=== PATIENT | female | born 1965 | race African-American/Black ===

== ENCOUNTER 2016-06-25 22:14 | Inpatient (IN) | payer OTHER ==
--- NOTE | ~2016-06-25 | CR72 ---
[facility] A Service of [facility] RADIOLOGY TEXT RESULTS PATIENT: JASS WHITTINGTON LOCATION: [facility] 577-01 : [birth year] UNIT #: [id number] AGE: [address]: Jason Armendariz MD SEX: F ORDER DR: [id number] [facility] [address] [facility] [place], [place] [address] [id number] I MR#: [id number] Acc #: [id number] NAME: JASS WHITTINGTON. : 1965 SEX: F STUDY DATE/TIME: 06/25/2016 21:50 UNIT: [facility] ROOM: [facility] STUDY DESCRIPTION: CR Chest Single View Portable Attending Physician: Kaila Padilla M.D. Ordering Physician: Abdias Irvin M.D. Primary Care Physician: Primary Care Physician No MEDICAL IMAGING REPORT This report is preliminary unless electronic signature is present EXAM Portable chest x-ray 06/25/2016 HISTORY Cough and short of air, weakness, congestion began today. FINDINGS AP radiograph of the chest is presented. No prior studies available for comparison at time of this dictation. Tracheostomy tube appears in good position. No acute bony abnormality. Mild cardiac enlargement. The lung volumes are low and there is some resulting central bronchovascular crowding. Pulmonary vasculature is more prominent than anticipated for the low lung volumes and there are increased interstitial densities in the hilar/perihilar regions with some patchy airspace densities in the bilateral upper and lower lung zones. The appearance is concerning for underlying vascular congestion with mild pulmonary edema having both interstitial and airspace components. No dense airspace disease. No pneumothorax. There may be a trace right pleural effusion. No sizable pleural effusion is suggested. Dictated by... Juventino Alonzo M.D. THIS IS AN ELECTRONICALLY VERIFIED REPORT Juventino Alonzo M.D. at 06/26/2016 8:05 PM ELVIA/elza TD: 06/26/2016 06:30 JOB #: [id number] [facility] A Service of [facility] RADIOLOGY TEXT RESULTS PATIENT: JASS WHITTINGTON LOCATION: [facility] 577-01 : [birth year] UNIT #: [id number] AGE: [address]: Jason Armendariz MD SEX: F ORDER DR: MEDICAL IMAGING REPORT Page 1 of 1 COPY
--- NOTE | ~2016-06-25 | DS ---
Unit #: [id number] #: [id number] Patient: JASS WHITTINGTON 115757 [address] [address] [id number] I MR#: [id number] NAME: JASS WHITTINGTON ROOM: 578 Age: 51 Sex: F Admission Date: 06/26/2016 : 1965 Discharge Date: Attending Physician: Nelson Siu M.D. Primary Care Physician: No Primary Care Physician DISCHARGE SUMMARY ADDENDUM This is an addendum to an addendum done by , which was an addendum to a discharge summary done by Dr. Jason Armendariz on 07/05/2016. The patient's initial discharge was anticipated on 07/07/2016. However, rehab bed was unavailable. The patient's hospital course has remained clinically uneventful and the patient does well on her home medications and home oxygen. It is anticipated that a bed will be available later today or tomorrow. The patient will be discharged when said bed is available. Dictated by... Efrain Leigh/bon TD: 07/09/2016 09:12 JOB #: [id number] DISCHARGE SUMMARY Page 1 of 1 X Nelson Siu MD X DISCHARGE SUMMARY
--- NOTE | ~2016-06-25 | CR72 ---
[facility] A Service of [facility] RADIOLOGY TEXT RESULTS PATIENT: JASS WHITTINGTON LOCATION: [place] [address]- : [birth year] UNIT #: [id number] AGE: [address]: Nelson Siu MD SEX: F ORDER DR: [id number] [facility] [address] [facility]. [place], [place] [address] [id number] I MR#: [id number] Acc #: [id number] NAME: JASS WHITTINGTON : 1965 SEX: F STUDY DATE/TIME: 07/10/2016 11:21 UNIT: [facility] ROOM: [facility] STUDY DESCRIPTION: CR Chest Single View Portable Attending Physician: Nelson Siu M.D. Ordering Physician: Ed Doctor [id number] [facility] Primary Care Physician: Primary Care Physician No MEDICAL IMAGING REPORT This report is preliminary unless electronic signature is present EXAM Single view chest INDICATIONS Shortness of air and respiratory failure. Cough. FINDINGS Single portable AP view of the chest compared to 06/25/2016. Tracheostomy tube remains in place. Heart is enlarged. Lung volumes remain low. There is improving bilateral interstitial opacities. No pneumothorax. IMPRESSION 1. Persistent low lung volumes, however there is improving interstitial opacities. 2. Cardiomegaly. Dictated by... Alvin Prescott M.D. THIS IS AN ELECTRONICALLY VERIFIED REPORT Alvin Prescott M.D. at 07/10/2016 3:14 PM ALEXSANDER/dale TD: 07/10/2016 14:25 JOB #: [id number] MEDICAL IMAGING REPORT Page 1 of 1 COPY
--- NOTE | ~2016-06-25 | DS ---
Unit #: [id number] #: [id number] Patient: JASS WHITTINGTON [id number] [address] [address] [id number] I MR#: [id number] NAME: JASS WHITTINGTON. ROOM: 578 Age: 51 Sex: F Admission Date: 06/26/2016 : 1965 Discharge Date: Attending Physician: Nelson Siu M.D. Primary Care Physician: No Primary Care Physician DISCHARGE SUMMARY ADDENDUM Addendum to the discharge summary done by Dr. Jason Armendariz on 07/05/16. No further interventions were initiated after the above dictation. Waiting for placement. At this time, said placement has been found and the patient is being discharged now. DISCHARGE MEDICATIONS 1. Combivent q.4 hours as needed and t.i.d. 2. Magnesium oxide 400 mg p.o. b.i.d. 3. Flonase two sprays each nostril daily. 4. Bactroban ointment topically daily. 5. Zyrtec 10 mg p.o. daily. 6. Wal-Dryl 25 mg p.o. b.i.d. 7. Promethazine DM syrup as needed q.4 hours for cough. 8. Lopressor 25 mg p.o. b.i.d. 9. Laxative of choice p.r.n. 10. Lasix 40 mg p.o. b.i.d. 11. Lipitor 40 mg daily. 12. Cozaar 50 mg p.o. q. h.s. 13. Lantus 30 units subcu at bedtime. 14. Ranitidine 150 mg p.o. b.i.d. 15. Zyloprim 100 mg p.o. daily. 16. Singulair 10 mg p.o. daily. 17. Aspirin 81 mg daily. 18. Percocet 5/325, one p.o. q.6 hours p.r.n. pain. 19. Spironolactone 50 mg daily. 20. Prilosec 20 mg p.o. b.i.d. 21. Nitrostat 0.4 mg sublingual p.r.n. chest pain. The patient should followup with Dr. Sanz in four weeks. Dictated by... Efrain Leigh/ninfa TD: 07/08/2016 13:06 JOB #: [id number] Unit #: [id number] #: [id number] Patient: JASS WHITTINGTON DISCHARGE SUMMARY Page 1 of 1 X Nelson Siu MD X DISCHARGE SUMMARY
--- NOTE | ~2016-06-25 | DS ---
Unit #: [id number] #: [id number] Patient: JASS WHITTINGTON [id number] [address] [place], [place] [address] [id number] I MR#: [id number] NAME: JASS WHITTINGTON. ROOM: 578 Age: 51 Sex: F Admission Date: 06/26/2016 : 1965 Discharge Date: 07/05/2016 Attending Physician: Nelson Siu M.D. DISCHARGE SUMMARY DATE OF DISCHARGE 07/05/2016 pending rehab placement. HISTORY OF PRESENT ILLNESS/HOSPITAL COURSE The patient is a very pleasant 51-year-old female with underlying history of hypertension, diabetes, obstructive sleep apnea with tracheostomy in place, severe morbid obesity, who was admitted secondary to shortness of breath, toxic metabolic encephalopathy. She has had fairly prolonged hospital stays in the past off and on. She was placed both at [facility] and [facility] to where she eventually went through rehab and was discharged home. She was at home. She began developing acute weight gain as well as increased difficulty of breathing and therefore presented to the hospital for further evaluation. Through hospital course, she was noted to be in acute systolic heart failure. We placed consultation to cardiology Services as well as Dr. Hudson of pulmonary services. In regard to her overall cardiac status, she was placed on IV diuresis as well as dobutamine in the initial part of her hospital stay. She underwent a 2D echocardiogram, which did show a severely reduced ejection fraction of 15% to 20%. She also was noted to have severe valvular heart disease with moderate to severe tricuspid regurgitation present. She has diuresed nearly 100 pounds of fluid off at the present time. Her current weight stands at 420 pounds. She states that she feels much better. She is now much more active. She is essentially bedridden, but she has been working with physical therapy. She has been able to sit on the side of the bed and actually walk a few steps. Pulmonary services did change her trach, which she does have in place. At this point in time, she has achieved a maximum diuretic effect with IV diuresis and that now has been transitioned to p.o. diuresis. Her medications will be reviewed by cardiology services and pulmonary services prior to discharge. The plans will be initiated for her to be transitioned to a rehab facility. CURRENT CLINICAL DIAGNOSES As of 07/05/2016: 1. Acute on chronic systolic heart failure with an ejection fraction noted to be 15% to 20%. Unit #: [id number] #: [id number] Patient: JASS WHITTINGTON 2. Severe valvular heart disease with noted moderate to severe tricuspid regurgitation. 3. Volume overload. 4. Severe morbid obesity with baseline weight approximately 420 pounds. 5. Multifactorial dyspnea, likely secondary to restrictive lung disease and heart failure. 6. Hypertension. 7. Hyperlipidemia. 8. Type 2 diabetes. 9. Chronic respiratory failure. 10. Obstructive sleep apnea with tracheostomy in place. Final discharge medications and/or disposition will be planned when the patient's rehab bed is available and services have reviewed at that particular time. Dictated by... Jason Armendariz M.D. ELISA/leatha TD: 07/06/2016 03:55 JOB #: [id number] DISCHARGE SUMMARY Page 1 of 1 X Jason Armendariz MD X DISCHARGE SUMMARY
--- NOTE | ~2016-06-25 | A ---
[facility] Nutrition Therapy DATE: 07/06/16 Patient: JASS WHITTINGTON Physician: HUNG Address: [address] Room/Bed: [address] [place] [address], Zip: [place] [address] Admit Date: 06/26/16 Date of : [birth year] Height: 5 9 Weight: 226 102.9 NUTRITIONAL ASSESSMENT: REASON: LOS ASSESSMENT PT IS 51 Y.O. FEMALE ADMITTED FOR CHF, ACUTE ON CHRONIC RESP FAILURE PMH: MARLEY S/P TRACHEOSTOMY, CHRONIC RESP FAILURE, HTN, DM, HLD, COPD, GOUT Anthropometrics: 5'9", WT: 421# (191 KG), BMI: 62.2, 290%IBW Labs: BUN: 53, CREAT: 1.6, ALB: 3.0 (06/30/16), A1c: 6.1, GFR: 42.2 Meds: PEPCID, FUROSEMIDE, LIPITOR, PROTONIX, NOVOLOG, LAXATIVE, NACL I/O & Bowel function: 1680/1752. 2 BMs NOTED Skin Integrity: BUTTOCKS OPEN AREA NOTED; PRESSURE ULCER (L) GREAT TOE Estimated Nutrition Needs: N/A Assessment: CHART REVIEWED AND EVENTS NOTED. PT SEEN FOR LOS (10 DAYS). PT REPORTS GOOD PO INTAKE AND APPETITE, NOTING NO C/O N/V/D. PT DENIES ANY RECENT WEIGHT LOSS. THIS RD PROVIDED WRITTEN AND VERBAL WEIGHT CONTROL + HH DIET EDUCATION. PT VERBALIZED UNDERSTANDING OF THE TOPIC. PT REPORTED NO DIET QUESTIONS AT THIS TIME. PER RN AND CHART, PLANS IN PLACE FOR PT TO TRANSFER TO [facility] WHEN BED AVAILABLE. RD TO REMAIN AVAILABLE. Dx: EXCESSIVE CALORIC INTAKE R/T LIFESTYLE AEB BMI OF 62.2. Intervention: 1. CC+HH + 1800 ML FLUID RESTRICTION DIET 2. DIET EDUCATION PROVIDED Monitoring, Evaluation and Goals: 1. WEIGHTS; PROMOTE GRADUAL WEIGHT LOSS TOWARDS HEALTHY BMI (19.0-25.0) OR +/-10%IBW 2. LABS; WNL MONITOR: -PO INTAKE -WEIGHTS -EDUCATION NEEDS Recommendations: 1. CONTINUE TO ENCOURAGE COMPLIANCE OF CURRENT DIET ORDER-CC+HH+ 1800 ML FLUID RESTRICTION [facility] Nutrition Therapy DATE: 07/06/16 Patient: JASS WHITTINGTON Physician: HUNG Address: [facility] [address] Room/Bed: [address] [place] [address], Zip: [place] [address] Admit Date: 06/26/16 Date of : [birth year] Height: 5 9 Weight: [address] IF FURTHER DIET EDUCATION REQUESTED RD WILL F/U PER PROTOCOL PT IS MILDLY COMPROMISED Respectfully, NEDRA SOLITARIO MS, RD, LD Food and Nutritional Services [facility] cc: client file
--- NOTE | ~2016-06-25 | EKG ---
PATIENT: JASS WHITTINGTON UNIT #: [id number] Ventricular Rate: 84 BPM Atrial Rate: 84 BPM P-R Interval: 134 ms QRS Duration: 102 ms Q-T Interval: 406 ms QTC Calculation(Bezet): 479 ms P Watrous: 68 degrees Calculated R Watrous: -21 degrees Calculated T Watrous: 83 degrees Diagnosis Line: Sinus rhythm Diagnosis Line: Poor R wave progression questionable lead position Diagnosis Line: or body habitus Diagnosis Line: T wave abnormality, consider anterolateral Diagnosis Line: ischemia Abnormal ECG Diagnosis Line: No previous ECGs available Diagnosis Line: Confirmed by CARLITO GOFF MD ([id number]) on 06/29/2016 Diagnosis Line: 10:42:45 PM INTERPRETING MD: SHELL HANCOCK
--- NOTE | ~2016-06-25 | BMI ---
[facility] Nutrition Therapy DATE: 06/26/16 Patient: JASS WHITTINGTON Physician: HUNG Address: [address] Room/Bed: [address] [place] [address], Zip: [place] [address] Admit Date: 06/26/16 Date of : [birth year] Height: Weight: 431 195.9 HIGH BMI NOTE: DX: 51 Y.O. FEMALE ADMITTED FOR CHF EXAC, ACUTE ON CHRONIC RESP FAILURE ANTHROPOMETRICS: 5'8", WT: 431# (196 KG), BMI: 65.5 DIET: CC+HH INTERVENTION: 1. CC+HH DIET RECOMMENDATIONS: 1. CONTINUE CURRENT DIET ORDER ABOVE TO PROMOTE GRADUAL WEIGHT LOSS TOWARDS HEALTHY BMI (19.0-25.0) OR +/-10%IBW RD WILL F/U PER PROTOCOL Respectfully, NEDRA SOLITARIO MS, RD, LD Food and Nutritional Services [facility] cc: client file
--- NOTE | ~2016-06-25 | CO ---
Unit #: [id number] #: [id number] Patient: JASS WHITTINGTON [id number] [address] [place], [place] [address] [id number] I MR#: [id number] NAME: JASS WHITTINGTON ROOM: 577 Age: 51 Sex: F Admission Date: 06/26/2016 : 1965 Attending Physician: Jason Armendariz M.D. Consultation Date: 06/26/2016 CONSULTATION REPORT REASON FOR CONSULTATION Congestive heart failure. HISTORY OF PRESENT ILLNESS This is a 51-year-old female, known to [facility] with a past medical history of reported dilated cardiomyopathy and chronic congestive heart failure. However, the patient had a 2D echocardiogram on 10/23/2014 at [facility], which was a technically difficult study. Ejection fraction was calculated at 50% to 55%. There was some impaired left ventricular relaxation and mild tricuspid regurgitation. Additional past medical history includes morbid obesity, hypertension, diabetes mellitus type 2, COPD, obstructive sleep apnea, gout, hyperlipidemia, and chronic respiratory failure with history of tracheostomy. The patient presented to the emergency department with complaints of shortness of breath for the last couple of days. She has had some PND and orthopnea. Has been sleeping with two pillows and wakes up with difficulty breathing. She admits to some chills, but no fever. She complains of some congestion in the chest. She has also had some swallowing issues over the past 1 to 2 days. There are no reports of chest pain. She denies any dizziness, palpitations, or syncope. She has had some constipation, but no melena. She admits to lower extremity edema. She is on a diuretic at home, but has not been taking the dose for the last couple of days due to significant shortness of breath and difficulty getting out of bed to use the restroom. She states that she has been compliant with all the other medications. She denies any previous ischemic workup. We will need to obtain further records and review. She was admitted to the hospital for acute on chronic respiratory failure and possible congestive heart failure. Cardiology was consulted for congestive heart failure. On exam, there is significant edema. The breath sounds are decreased. BNP was elevated at 831. Creatinine is 1.0 with a BUN of 57. Chest x-ray reveals mild cardiovascular enlargement with low lung volumes. There is vascular congestion and mild pulmonary edema noted. EKG reveals sinus rhythm with poor R-wave progression and a left axis deviation, which could be all weight related. PAST MEDICAL HISTORY 1. A 2D echocardiogram on 10/23/2014 as reviewed above with ejection fraction of 50% to 55%. Impaired left ventricular relaxation. Trace to Unit #: [id number] #: [id number] Patient: JASS WHITTINGTON mild mitral regurgitation. Mild tricuspid regurgitation. Right ventricular systolic pressure 30 to 35 mmHg. Trace pulmonic regurgitation. No pericardial effusion. 2. History of reported dilated cardiomyopathy and chronic congestive heart failure. 3. Morbid obesity. 4. Hypertension. 5. Hyperlipidemia. 6. Diabetes mellitus, type 2. 7. COPD. 8. Obstructive sleep apnea. 9. Chronic respiratory failure with tracheostomy. 10. Gout. 11. Nonsmoker. PAST SURGICAL HISTORY 1. Tonsillectomy. 2. Tracheostomy. HOME MEDICATIONS Amlodipine 5 mg p.o. daily; metolazone 2.5 mg p.o. daily; allopurinol 100 mg p.o. daily; Lantus 30 units subcu bedtime; nitroglycerin 0.4 mg sublingual daily; Combivent 3 mL inhalation every 4 hours; Flonase 50 mcg nasal daily; Promethazine DM one teaspoon p.o. every 4 hours p.r.n. for cough; Prilosec 20 mg p.o. b.i.d.; diphenhydramine 25 mg p.o. b.i.d.; Lasix 40 mg p.o. b.i.d.; potassium chloride 20 mEq p.o. daily; Zyrtec 10 mg p.o. daily; ranitidine 150 mg p.o. b.i.d.; Singulair 10 mg p.o. daily; aspirin 81 mg p.o. daily; Lipitor 40 mg p.o. daily. ALLERGIES No known drug allergies. SOCIAL HISTORY The patient lives in a private residence with her mother. She sleeps in a hospital bed. She uses a walker to ambulate. She is a lifetime nonsmoker. There are no reports of alcohol or illicit drug use. FAMILY HISTORY Noncontributory. REVIEW OF SYSTEMS 10-point review of systems negative except for details noted above in HPI. PHYSICAL EXAMINATION VITAL SIGNS: Temperature 98.1, pulse 94, blood pressure 126/79. CONSTITUTIONAL: This is a 51-year-old female, who is morbidly obese. SKIN: Warm and dry. NECK: Supple. No jugular vein distention. No hepatojugular reflux. Normal carotid upstrokes. No carotid bruits auscultated. HEART: S1 and S2. Regular rate and rhythm. No murmurs, rubs, or gallops. LUNGS: Bilateral breath sounds have faint rales in the bases. Respirations are even and nonlabored. No rhonchi or wheezes. ABDOMEN: Obese, soft, nontender, and nondistended. Positive bowel sounds auscultated x4 quadrants. No ascites noted. Unit #: [id number] #: [id number] Patient: JASS WHITTINGTON EXTREMITIES: Bilateral lower extremities have 2+ pitting edema. DP and PT pulses 1+. Capillary refill less than 20 seconds. DIAGNOSTIC STUDIES LABORATORY RESULTS: White blood cell count 10.3, hemoglobin 14.5, hematocrit 46.2, platelets 220. Sodium 137, potassium 4.3, chloride 93, CO2 of 34, BUN 57, creatinine 1.0, glucose 100, albumin 3.4, total bilirubin 1.0, direct bilirubin 0.3, indirect bilirubin 0.7, AST 26, ALT 18, alkaline phos 105. BNP 831. INR 1.2. IMAGING STUDIES: Chest x-ray reveals trach in good position. Mild cardiovascular enlargement. Low lung volumes. Vascular congestion with mild pulmonary edema. Questionable trace pleural effusion. CARDIOVASCULAR STUDIES: EKG reveals sinus rhythm with left axis deviation. Poor R-wave progression. QTc: 7 msec. IMPRESSION 1. Dilated cardiomyopathy questionably secondary to hypotension. 2. Morbid obesity. 3. Obstructive sleep apnea. 4. Chronic respiratory failure with tracheostomy. 5. Hyperlipidemia. 6. Diabetes mellitus type 2, insulin dependent. PLAN 1. The patient presented to the hospital with complaints of shortness of breath. She was admitted to the hospital for acute on chronic respiratory failure and possible congestive heart failure. 2. Cardiology was consulted for further evaluation of congestive heart failure. 3. The patient will be placed on spironolactone. We will continue IV diuretics as dosed. 4. She has been advised to follow fluid restriction and low-sodium diet. 5. There are no complaints of chest pain. We will trend cardiac enzymes and EKG. 6. Fasting lipid profile and TSH will be obtained. 7. The patient has worsening swelling in the left upper extremity and a venous Doppler will be ordered to rule out deep vein thrombosis. 8. The patient reports issues with swallowing and Speech Therapy will be consulted for bedside swallow evaluation. 9. The patient will be placed on carvedilol due to congestive heart failure. Norvasc will be discontinued due to lower extremity edema. The patient will also be started on an ARB for afterload reduction. 10. A 2D echocardiogram has been ordered to reassess LV function and valves. 11. The patient has been advised to lose weight by means of exercise and decrease caloric intake. Dictated by... Enid Lutz APRN for Efrain Carbajal/leatha TD: 06/27/2016 18:48 JOB #: [id number] Unit #: [id number] #: [id number] Patient: NELSYJASS E CONSULTATION REPORT Page 1 of 1 X X CONSULTATION REPORT
--- NOTE | ~2016-06-25 | HP ---
Unit #: [id number] #: [id number] Patient: JASS WHITTINGTON [id number] [address] [place], [place] [address] [id number] MR#: [id number] NAME: JASS WHITTINGTON. ROOM: 577 Age: 51 Sex: F Admission Date: 06/26/2016 : 1965 Attending Physician: Kaila Padilla M.D. Primary Care Physician: No Primary Care Physician HISTORY AND PHYSICAL CHIEF COMPLAINT Acute on chronic respiratory failure, congestive heart failure. HISTORY This pleasant 51-year-old female with hypertension, AODM, obstructive sleep apnea with trach in place, morbid obesity, is admitted for shortness of breath. Patient states that she was well until two days prior to admission when she developed increasing shortness of breath, mild wheezing, and increasing pedal edema. Notes orthopnea with the above. Denies any pain. She presented to this emergency department late last evening with acute on chronic respiratory failure. BNP and chest x-ray are suggestive of congestive heart failure. She did have initial bronchospasm on exam. She was treated with bronchodilators, 125 mg of Solu-Medrol and 40 IV of Lasix. She currently is breathing easier. I was able to reduce the amount of oxygen that she is receiving via her trach mask substantially in the ER. The patient has never been hospitalized at this facility, and normally goes to [facility]. I will obtain records. PAST MEDICAL HISTORY 1. Hypertension. 2. AODM. 3. Hyperlipidemia. 4. GERD. 5. Gout. 6. Obstructive sleep apnea, on 2 L of oxygen. 7. Morbid obesity. 8. Tracheostomy for obstructive sleep apnea. 9. Tonsillectomy. ALLERGIES No known drug allergies. HOME MEDICATIONS 1. Norvasc 5 mg daily. 2. Zaroxolyn 2.5 mg, two tablets daily. 3. Allopurinol 100 mg daily. 4. Lantus 30 units subcu q. h.s. 5. Nitroglycerin p.r.n. chest pain. 6. Duo-Nebs. 7. Flonase nasal spray. 8. Phenergan DM q.4 hours as needed. 9. Albuterol q.i.d. p.r.n. Unit #: [id number] #: [id number] Patient: JASS WHITTINGTON 10. Omeprazole 20 mg daily. 11. Benadryl 25 mg b.i.d. 12. Lasix 40 mg p.o. b.i.d. 13. Potassium 20 mEq daily. 14. Zyrtec 10 mg daily. 15. Zantac 150 mg b.i.d. 16. Singulair 10 mg daily. 17. Aspirin 81 mg daily. 18. Lipitor 40 mg daily. 19. Oxygen - the patient states that generally she just needs 2 L but 4 L is noted on her sheet. FAMILY HISTORY Positive for CAD. SOCIAL HISTORY The patient lives with her mother and sister. She is a lifelong nonsmoker, does not drink alcohol. REVIEW OF SYSTEMS Somewhat difficult to obtain as patient has tracheostomy which was not occluded. PHYSICAL EXAMINATION GENERAL APPEARANCE: Pleasant, morbidly obese 51-year-old female currently in no acute distress. VITAL SIGNS: Temperature 99, pulse 94, respirations 26, blood pressure 150/103. O2 saturation was read initially as 92% on 2 L of oxygen. Her current O2 saturation is actually 98% on 6 L of oxygen via trach mask currently. HEENT: Eyes PERRLA. Extraocular muscles are intact. Pharynx is benign. NECK: Supple without adenopathy or thyromegaly. CHEST: Actually fairly clear at present. CARDIAC: Normal S1 and S2 without S3, S4 or murmur. ABDOMEN: Bowel sounds are present. No hepatosplenomegaly, tenderness or masses. Abdomen is obese. There are some open areas in the groin region. EXTREMITIES: Notable for chronic venous stasis dermatitis, pedal edema. There is a superficial wound noted over her left great toe but, otherwise, no ulcers on the feet. NEUROLOGIC EXAM: The patient is awake, alert, oriented. Cranial nerves are intact. Equal strength throughout but she is weak on exam. DIAGNOSTIC STUDIES LABORATORY: Admission labs - hematocrit is 46.2, normal white count and platelet count. Cardiac markers are negative. Coags are normal. SMA-12 - BUN is 57, chloride 93, CO2 34, albumin is 3.4, alkaline phos. 105, BNP is 831. ABG - pH 7.35, pCO2 65, pO2 60. O2 saturation is 90% on 10 L oxygen per trach mask. Again, I was able to decrease this considerably in the emergency department. She is now on 6 L, and her current O2 saturation is about 96%. IMAGING: Chest x-ray consistent with congestive heart failure. Unit #: [id number] #: [id number] Patient: JASS WHITTINGTON BNP is 800. CARDIOVASCULAR: EKG - normal sinus rhythm, rate 84. Poor R wave progression. No old EKG for comparison. Patient's last EKG was 2004. ASSESSMENT 1. Acute on chronic hypercapnic/hypoxic respiratory failure: Although patient had wheezes initially on exam, her examination at this time is fairly normal. She does have evidence, however, of congestive heart failure, both by chest x-ray clinically and by BNP. 2. History of congestive heart failure: Details are unknown. Patient presents with decompensated congestive heart failure. 3. Obstructive sleep apnea with trach in place. 4. Possible chronic obstructive pulmonary disease. 5. Morbid obesity. 6. AODM. 7. Hypertension. 8. Hyperlipidemia. 9. Gastroesophageal reflux disease. 10. Gout. 11. Superficial left great toe wound. PLANS 1. IV Lasix, continue Zaroxolyn, obtain I's and O's and daily weights. Will obtain echo, repeat cardiac enzymes. 2. Request old records from [facility]. 3. DVT prophylaxis and check Dopplers of the legs. 4. Patient received one dose of Solu-Medrol which I will not continue. 5. Wound nurse to see. 6. Further workup and consultants depending on above. Dictated by Kaila Padilla M.D. AML/df TD: 06/26/2016 06:06 JOB #: [id number] CC: Lexa Houston M.D. HISTORY AND PHYSICAL Page 1 of 1 X Kaila Padilla MD HISTORY AND PHYSICAL
--- NOTE | ~2016-06-25 | CO ---
Unit #: [id number] #: [id number] Patient: JASS WHITTINGTON [id number] [address] [address] [id number] MR#: [id number] NAME: JASS WHITTINGTON ROOM: 57 Age: 51 Sex: F Admission Date: 06/26/2016 : 1965 Attending Physician: Jason Armendariz M.D. Primary Care Physician: Primary Care Physician No CONSULTATION REPORT REASON FOR CONSULTATION Respiratory failure. HISTORY OF PRESENT ILLNESS This 51-year-old female with past medical history of morbid obesity, obstructive sleep apnea, status post tracheostomy, hypertension, diabetes mellitus, who presents with complaint of shortness of breath and increasing sputum production. I am seeing the patient at the bedside. She appears to be in volume overload and is morbidly obese. She says that her breathing is better. Denies any chest pain. PAST MEDICAL HISTORY 1. Hypertension. 2. Dyslipidemia. 3. Gout. 4. Obstructive sleep apnea. 5. Status post trach. 6. Morbid obesity. HOME MEDICATIONS 1. Norvasc. 2. Zaroxolyn. 3. Allopurinol. 4. Lantus. 5. Nitroglycerin. 6. DuoNeb. 7. Flonase. 8. Phenergan. 9. Albuterol. 10. Omeprazole. 11. Benadryl. 12. Lasix. 13. Potassium. 14. Singulair. 15. Lipitor. 16. Oxygen. ALLERGIES No known drug allergies. SOCIAL HISTORY Nonsmoker, no alcohol, no drug abuse. Unit #: [id number] #: [id number] Patient: JASS WHITTINGTON FAMILY HISTORY Positive for coronary artery disease. PHYSICAL EXAMINATION VITAL SIGNS: Temperature 98, pulse 67, respirations 12, blood pressure 130/70. NEUROLOGIC: Awake, alert, oriented. No neurologic deficits. HEENT: PERRLA. EOMI. NECK: Supple, no JVD. LUNGS: Bilateral air entry, bilateral mild rhonchi. ABDOMEN: Nontender, soft. Positive bowel sounds. EXTREMITIES: Positive edema. DIAGNOSTIC STUDIES LABORATORY: Reviewed. IMAGING: Reviewed. ASSESSMENT AND PLAN 1. [id number] hypercapnic, hypoxic respiratory failure. 2. Acute exacerbation of congestive heart failure. 3. Obstructive sleep apnea. 4. Possible chronic obstructive pulmonary disease. 5. Morbid obesity. 6. Hypertension. 7. Dyslipidemia. PLAN 1. Continue trach care. 2. Continue oxygen. 3. Continue bronchodilator. 4. GI and DVT prophylaxis. 5. Order noncontrast CT of the chest. 6. Procalcitonin level. 7. I will consider antibiotics. 8. Patient will be closely monitored. 9. Please see orders for detailed plan. Thank you very much for this consultation. Dictated by... Efrain Curtis/laure TD: 06/26/2016 22:05 JOB #: [id number] Unit #: [id number] #: [id number] Patient: JASS WHITTINGTON CONSULTATION REPORT Page 1 of 1 X Yady Hudson MD CONSULTATION REPORT
--- NOTE | ~2016-06-25 | US140 ---
[facility] A Service of [facility] RADIOLOGY TEXT RESULTS PATIENT: JASS WHITTINGTON LOCATION: [facility] [place] [facility] 5710-03 : [birth year] UNIT #: [id number] AGE: [address]: Jason Armendariz MD SEX: F ORDER DR: [id number] [facility] [address]. [place], [place] [address] [id number] I MR#: [id number] Acc #: [id number] NAME: JASS WHITTINGTON : 1965 SEX: F STUDY DATE/TIME: 06/26/2016 21:19 UNIT: [facility] [place] [facility] ROOM: [facility] STUDY DESCRIPTION: US UE Veins Unilat or Ltd Stdy Attending Physician: Jason Armendariz M.D. Ordering Physician: Kaila Padilla M.D. Primary Care Physician: No Primary Care Physician MEDICAL IMAGING REPORT This report is preliminary unless electronic signature is present EXAM Upper extremity ultrasound for DVT on the left, 06/26/2016. INDICATION Left upper extremity swelling 2 days. History of diabetes and hypertension. TECHNIQUE Winter-scale, color Doppler, and spectral analysis of the left upper extremity was performed. COMPARISON STUDIES No comparison studies. FINDINGS The left internal jugular vein was not visualized secondary to lack of an adequate sonographic window. The remainder of the left upper extremity demonstrates no evidence of DVT. IMPRESSION No DVT identified in the left upper extremity. Left internal jugular vein not assessed secondary to lack of an adequate sonographic window. Dictated by... Alvarez Valladares M.D. THIS IS AN ELECTRONICALLY VERIFIED REPORT Alvarez Valladares M.D. at 06/27/2016 10:15 PM KIKI/kurt TD: 06/27/2016 11:59 [facility] A Service [facility] RADIOLOGY TEXT RESULTS PATIENT: JASS WHITTINGTON LOCATION: [facility] [place] [facility] 5710-03 : [birth year] UNIT #: [id number] AGE: [address]: Jason Armendariz MD SEX: F ORDER DR: JOB #: [id number] MEDICAL IMAGING REPORT Page 1 of 1 COPY
[2016-06-25 21:50] LABS: ARTERIAL BLD GAS O2 SATURATION 89.8 % (90.0-100.0); ARTERIAL BLOOD GAS CARBOXY HB 1.3 %sat (0.0-9.0); ARTERIAL BLOOD GAS HCO3 35.8 mmol/L; ARTERIAL BLOOD GAS MET HB 0.7 %sat (0.0-2.0); ARTERIAL BLOOD GAS pH 7.348 (7.350-7.450)
[2016-06-25 21:52] LABS: ARTERIAL BLOOD GAS PCO2 65.3 mmHg (35.0-45.0); ARTERIAL BLOOD GAS PO2 59.9 mmHg (80.0-100)
[2016-06-25 21:53] LABS: ARTERIAL BLOOD GAS ALLEN TEST NORMAL; ARTERIAL BLOOD GAS ART SITE RIGHT RADIAL; ARTERIAL BLOOD GAS DELIVERY TRACHEAL MASK; ARTERIAL DRAW? YES
[~2016-06-25 22:14] MED LIST: COLCHICINE; LIPITOR; MAXZIDE 75/50 T1 TAB
[2016-06-26 00:19] LABS: BASOPHIL% 0.2 % (0-2.5); EOSINOPHIL# 0.2 X10e3 (0-0.7); EOSINOPHIL% 1.5 % (0.0-7.0); HEMATOCRIT 46.2 % (35.0-45.0); HEMOGLOBIN 14.5 gm/dL (12.0-16.0); LYMPHOCYTE# 0.3 X10e3 (1.0-3.5); LYMPHOCYTE% 2.9 % (17.0-45.0); MEAN CELL VOLUME 88.2 FL (83-96); MEAN CORPUSCULAR HEMOGLOBIN 27.6 PG (28-34); MEAN CORPUSCULAR HGB CONC 31.3 g/dL (30-36); MONOCYTE% 9.8 % (3.0-12.0); NEUTROPHIL# 8.8 X10e3 (1.5-7.1); NEUTROPHIL% 85.6 % (40-75); PLATELET COUNT 220 X10e3 (140-420); RED BLOOD COUNT 5.24 X10e (3.90-5.30); RED CELL DISTRIBUTION WIDTH 17.8 % (11.0-15.5); WHITE BLOOD COUNT 10.3 X10e3 (4.0-10.5)
[2016-06-26 00:23] LABS: DIFF IND NO
[2016-06-26 00:28] LABS: POC - CKMB 2.5 ng/mL (0.0-7.9); POC - TROPONIN <0.05 ng/mL (<=0.05)
[2016-06-26 00:32] LABS: INR 1.2; PARTIAL THROMBOPLASTIN TIME 27.2 SECONDS (23.5-31.3); PROTHROMBIN TIME (PATIENT) 13.1 SECONDS (9.6-11.5)
[2016-06-26 01:01] LABS: ALBUMIN SERUM 3.4 g/dL (3.5-5.0); BILIRUBIN, DIRECT 0.3 mg/dL (0.0-0.2); BILIRUBIN,INDIRECT 0.7 mg/dL (0.0-0.9); CALCIUM SERUM 8.8 mg/dL (8.4-10.2); GLOM FILT RATE Estimated 74.5 mL/min (>60); POTASSIUM 4.3 mmol/L (3.5-5.1); PROTEIN TOTAL SERUM 7.4 g/dL (6.0-8.3)
[2016-06-26] MEDS ORDERED: METOLAZONE2.5 MG PO (03:06)
[2016-06-26] MEDS ORDERED: AMLODIPINE BESYL5 MG PO (03:06)
[2016-06-26] MEDS ORDERED: LANTUS100 U/ML SUBQ (03:07)
[2016-06-26] MEDS ORDERED: ZYLOPRIM100 MG PO (03:07)
[2016-06-26] MEDS ORDERED: NITROSTAT0.4 MG SL (03:08)
[2016-06-26] MEDS ORDERED: COMBIVENT U/D3 M1 INH (03:09)
[2016-06-26] MEDS ORDERED: FLONASE 0.05% N16 G1 (03:10)
[2016-06-26] MEDS ORDERED: PROMETHAZINE D118 ML PO (03:11)
[2016-06-26] MEDS ORDERED: PRILOSEC PO (03:12)
[2016-06-26] MEDS ORDERED: WAL-DRYL25 M1 PO (03:12)
[2016-06-26] MEDS ORDERED: LASIX20 MG PO (03:13)
[2016-06-26] MEDS ORDERED: POTASSIUM CHLO20 ME1 PO (03:13)
[2016-06-26] MEDS ORDERED: ACID CONTROL150 M1 PO (03:14)
[2016-06-26] MEDS ORDERED: ZYRTEC10 M1 PO (03:14)
[2016-06-26] MEDS ORDERED: ASPIRIN EC81 M1 PO (03:15)
[2016-06-26] MEDS ORDERED: SINGULAIR PO (03:15)
[2016-06-26] MEDS ORDERED: LIPITOR40 MG PO (03:16)
[2016-06-26 15:46] LABS: CK TOTAL 50 IU/L (26-140)
[2016-06-26 18:25] LABS: CK TOTAL 50 IU/L (26-140)
[2016-06-27 10:46] LABS: HEMATOCRIT 46.3 % (35.0-45.0); HEMOGLOBIN 14.7 gm/dL (12.0-16.0); MEAN CELL VOLUME 86.8 FL (83-96); MEAN CORPUSCULAR HEMOGLOBIN 27.6 PG (28-34); MEAN CORPUSCULAR HGB CONC 31.8 g/dL (30-36); MEAN PLATELET VOLUME 9.1 FL (6.5-11.5); RED BLOOD COUNT 5.34 X10e (3.90-5.30); RED CELL DISTRIBUTION WIDTH 18.4 % (11.0-15.5); WHITE BLOOD COUNT 10.5 X10e3 (4.0-10.5)
[2016-06-27 11:08] LABS: BUN/CREATININE RATIO 43.63; CALCIUM SERUM 8.9 mg/dL (8.4-10.2); CREATININE SERUM 1.1 mg/dL (0.6-1.4); GLOM FILT RATE Estimated 66.4 mL/min (>60); MAGNESIUM 2.4 mg/dL (1.6-3.0); POTASSIUM 4.3 mmol/L (3.5-5.1)
[2016-06-28 06:22] LABS: HEMATOCRIT 45.2 % (35.0-45.0); HEMOGLOBIN 14.2 gm/dL (12.0-16.0); MEAN CELL VOLUME 87.8 FL (83-96); MEAN CORPUSCULAR HEMOGLOBIN 27.6 PG (28-34); MEAN CORPUSCULAR HGB CONC 31.4 g/dL (30-36); RED BLOOD COUNT 5.14 X10e (3.90-5.30); RED CELL DISTRIBUTION WIDTH 17.7 % (11.0-15.5); WHITE BLOOD COUNT 10.2 X10e3 (4.0-10.5)
[2016-06-28 06:53] LABS: CALCIUM SERUM 8.9 mg/dL (8.4-10.2); GLOM FILT RATE Estimated 74.5 mL/min (>60)
[2016-06-30 06:57] LABS: HEMATOCRIT 43.7 % (35.0-45.0); HEMOGLOBIN 13.7 gm/dL (12.0-16.0); MEAN CELL VOLUME 87.3 FL (83-96); MEAN CORPUSCULAR HEMOGLOBIN 27.5 PG (28-34); MEAN CORPUSCULAR HGB CONC 31.5 g/dL (30-36); MEAN PLATELET VOLUME 9.1 FL (6.5-11.5); RED CELL DISTRIBUTION WIDTH 17.6 % (11.0-15.5); WHITE BLOOD COUNT 9.3 X10e3 (4.0-10.5)
[2016-06-30 07:43] LABS: FREE T3 2.6 pg/mL (2.5-3.9)
[2016-06-30 07:45] LABS: FREE THYROXIN (T4) 1.22 ng/dL (0.58-1.64)
[2016-06-30 09:53] LABS: BILIRUBIN,TOTAL 1.1 mg/dL (0.2-2.0); CALCIUM SERUM 8.5 mg/dL (8.4-10.2); GLOM FILT RATE Estimated 74.5 mL/min (>60); MAGNESIUM 1.6 mg/dL (1.6-3.0); POTASSIUM 4.7 mmol/L (3.5-5.1); PROTEIN TOTAL SERUM 6.2 g/dL (6.0-8.3)
[2016-07-01 05:40] LABS: HEMATOCRIT 42.9 % (35.0-45.0); HEMOGLOBIN 13.6 gm/dL (12.0-16.0); MEAN CELL VOLUME 87.4 FL (83-96); MEAN CORPUSCULAR HEMOGLOBIN 27.6 PG (28-34); MEAN CORPUSCULAR HGB CONC 31.6 g/dL (30-36); MEAN PLATELET VOLUME 9.1 FL (6.5-11.5); RED BLOOD COUNT 4.91 X10e (3.90-5.30); RED CELL DISTRIBUTION WIDTH 17.8 % (11.0-15.5); WHITE BLOOD COUNT 8.7 X10e3 (4.0-10.5)
[2016-07-01 06:55] LABS: CALCIUM SERUM 8.2 mg/dL (8.4-10.2); CREATININE SERUM 1.2 mg/dL (0.6-1.4); GLOM FILT RATE Estimated 59.8 mL/min (>60); POTASSIUM 3.9 mmol/L (3.5-5.1)
[2016-07-02 07:34] LABS: HEMOGLOBIN 13.4 gm/dL (12.0-16.0); MEAN CELL VOLUME 87.2 FL (83-96); MEAN CORPUSCULAR HEMOGLOBIN 27.7 PG (28-34); MEAN CORPUSCULAR HGB CONC 31.8 g/dL (30-36); MEAN PLATELET VOLUME 9.2 FL (6.5-11.5); RED BLOOD COUNT 4.82 X10e (3.90-5.30); RED CELL DISTRIBUTION WIDTH 17.4 % (11.0-15.5); WHITE BLOOD COUNT 8.7 X10e3 (4.0-10.5)
[2016-07-02 08:04] LABS: BUN/CREATININE RATIO 25.71; CALCIUM SERUM 8.1 mg/dL (8.4-10.2); CREATININE SERUM 1.4 mg/dL (0.6-1.4); GLOM FILT RATE Estimated 49.6 mL/min (>60); POTASSIUM 3.9 mmol/L (3.5-5.1)
[2016-07-03 05:50] LABS: HEMOGLOBIN 12.7 gm/dL (12.0-16.0); MEAN CELL VOLUME 87.3 FL (83-96); MEAN CORPUSCULAR HEMOGLOBIN 27.7 PG (28-34); MEAN CORPUSCULAR HGB CONC 31.7 g/dL (30-36); MEAN PLATELET VOLUME 9.6 FL (6.5-11.5); RED BLOOD COUNT 4.58 X10e (3.90-5.30); RED CELL DISTRIBUTION WIDTH 17.6 % (11.0-15.5)
[2016-07-03 06:25] LABS: BUN/CREATININE RATIO 27.14; CALCIUM SERUM 8.1 mg/dL (8.4-10.2); CREATININE SERUM 1.4 mg/dL (0.6-1.4); GLOM FILT RATE Estimated 49.6 mL/min (>60); POTASSIUM 3.6 mmol/L (3.5-5.1)
[2016-07-04 12:32] LABS: HEMATOCRIT 42.7 % (35.0-45.0); HEMOGLOBIN 13.3 gm/dL (12.0-16.0); MEAN CELL VOLUME 88.7 FL (83-96); MEAN CORPUSCULAR HEMOGLOBIN 27.6 PG (28-34); MEAN CORPUSCULAR HGB CONC 31.1 g/dL (30-36); MEAN PLATELET VOLUME 9.6 FL (6.5-11.5); RED BLOOD COUNT 4.82 X10e (3.90-5.30); RED CELL DISTRIBUTION WIDTH 17.2 % (11.0-15.5); WHITE BLOOD COUNT 6.3 X10e3 (4.0-10.5)
[2016-07-04 13:12] LABS: BUN/CREATININE RATIO 31.53; CALCIUM SERUM 8.8 mg/dL (8.4-10.2); CREATININE SERUM 1.3 mg/dL (0.6-1.4); GLOM FILT RATE Estimated 54.2 mL/min (>60); MAGNESIUM 2.5 mg/dL (1.6-3.0); POTASSIUM 4.4 mmol/L (3.5-5.1)
[2016-07-05 07:34] LABS: CALCIUM SERUM 8.9 mg/dL (8.4-10.2); CREATININE SERUM 1.5 mg/dL (0.6-1.4); GLOM FILT RATE Estimated 45.6 mL/min (>60); POTASSIUM 4.2 mmol/L (3.5-5.1)
[2016-07-06 06:17] LABS: BUN/CREATININE RATIO 33.12; CALCIUM SERUM 8.7 mg/dL (8.4-10.2); CREATININE SERUM 1.6 mg/dL (0.6-1.4); GLOM FILT RATE Estimated 42.2 mL/min (>60); MAGNESIUM 2.6 mg/dL (1.6-3.0); POTASSIUM 4.9 mmol/L (3.5-5.1)
[2016-07-08 13:00] LABS: BUN/CREATININE RATIO 44.61; CALCIUM SERUM 8.8 mg/dL (8.4-10.2); CREATININE SERUM 1.3 mg/dL (0.6-1.4); GLOM FILT RATE Estimated 54.2 mL/min (>60)
== END 2016-07-10 14:56 | DRG 291 ==
LOC: CED 22:14 → CEDOF 06-26 02:05 → C5C 06-26 04:12
PROVIDERS: Emergency Medicine; Family Medicine; Internal Medicine; Internal Medicine Cardiovascular Disease; Internal Medicine Gastroenterology; Nurse Practitioner; Nurse Practitioner Family
PROC: B24BZZZ Ultrasonography of Heart with Aorta (ICD-10-PCS; principal; 2016-06-26)
PROC: 02HV33Z Insertion of Infusion Device into Superior Vena Cava, Percutaneous Approach (ICD-10-PCS; 2016-06-30)
PROC: B548ZZA Ultrasonography of Superior Vena Cava, Guidance (ICD-10-PCS; 2016-06-30)
DX: I50.23 Acute on chronic systolic (congestive) heart failure (principal); J96.22 Acute and chronic respiratory failure with hypercapnia; J96.21 Acute and chronic respiratory failure with hypoxia; I95.9 Hypotension, unspecified; Z93.0 Tracheostomy status; I07.1 Rheumatic tricuspid insufficiency; E66.01 Morbid (severe) obesity due to excess calories; I42.0 Dilated cardiomyopathy; I10 Essential (primary) hypertension; E78.5 Hyperlipidemia, unspecified; E11.9 Type 2 diabetes mellitus without complications; G47.33 Obstructive sleep apnea (adult) (pediatric); Z79.4 Long term (current) use of insulin; M10.9 Gout, unspecified; S90.932A Unspecified superficial injury of left great toe, initial encounter
CPT/HCPCS: 36415; 36600; 71010; 80048; 80053; 80061; 80076; 82550; 82553; 82803; 82947; 83036; 83735; 83880; 84439; 84443; 84481; 84484; 85025; 85027; 85610; 85730; 87070; 87205; 90688; 92526; 92610; 93005; 93306; 93970; 93971; 94640; 94760; 96374; 96375; 97110; 97116; 97163; 97167; 97530; 97535; 99285; J1250; J1650; J1815; J1940; J2930; J2997; J3475